=== PATIENT | male | born 1955 | race Caucasian/White ===

== ENCOUNTER → 2020-10-28 | Outpatient (CLI) | payer MEDICARE, OTHER ==
[2020-10-28 08:37] LABS: HEMOGLOBIN 15.8 gm/dl (14.0-17.5); RED BLOOD COUNT 5.34 M/UL (4.20-5.50); WHITE BLOOD COUNT 6.2 K/UL (4.5-11.0)
[2020-10-28 09:00] LABS: BUN/CREATININE RATIO 21 (0-10)
== END ==
LOC: LAB 07:21
PROVIDERS: Internal Medicine Hematology & Oncology
DX: C34.12 Malignant neoplasm of upper lobe, left bronchus or lung (principal)
CPT/HCPCS: 36415; 80053; 85025

== ENCOUNTER → 2020-10-31 | Outpatient (CLI) | payer MEDICARE, OTHER | LOC: CT 09:00 | DX: C34.12 Malignant neoplasm of upper lobe, left bronchus or lung (principal) | CPT/HCPCS: 71260; Q9967 ==

== ENCOUNTER 2021-07-14 09:18 | Emergency (ER) | payer OTHER ==
[2021-07-14 10:09] LABS: HEMOGLOBIN 14.9 gm/dl (14.0-17.5); RED BLOOD COUNT 5.18 M/UL (4.20-5.50); WHITE BLOOD COUNT 6.3 K/UL (4.5-11.0)
[2021-07-14 10:38] LABS: BUN/CREATININE RATIO 14 (0-10)
== END 2021-07-14 13:57 | disposition home or self-care (01) ==
LOC: ER1 09:18
PROVIDERS: Nurse Practitioner
DX: R07.89 Other chest pain (principal); I10 Essential (primary) hypertension; Z85.118 Personal history of other malignant neoplasm of bronchus and lung; J44.9 Chronic obstructive pulmonary disease, unspecified
CPT/HCPCS: 71045; 80053; 82550; 82553; 83874; 84484; 85025; 93005; 96374; 96375; 99285; J2270; J2405

== ENCOUNTER → 2021-11-28 | Outpatient (CLI) | payer MEDICARE, OTHER ==
[2021-11-28 08:29] LABS: HEMOGLOBIN 14.9 gm/dl (14.0-17.5); RED BLOOD COUNT 5.21 M/UL (4.20-5.50); WHITE BLOOD COUNT 6.8 K/UL (4.5-11.0)
[2021-11-28 09:00] LABS: BUN/CREATININE RATIO 15 (0-10)
== END ==
LOC: CT 08:03
PROVIDERS: Registered Nurse
DX: C34.12 Malignant neoplasm of upper lobe, left bronchus or lung (principal); K76.0 Fatty (change of) liver, not elsewhere classified
CPT/HCPCS: 36415; 71260; 80053; 85025; Q9967

== ENCOUNTER 2022-02-07 11:52 | Emergency (ER) | payer OTHER, MEDICARE ==
[2022-02-07 13:18] LABS: HEMOGLOBIN 13.9 gm/dl (14.0-17.5); RED BLOOD COUNT 4.84 M/UL (4.20-5.50); WHITE BLOOD COUNT 8.1 K/UL (4.5-11.0)
[2022-02-07 13:33] LABS: BUN/CREATININE RATIO 17 (0-10)
[2022-02-07] MEDS ORDERED: BACTRIM DS TAB1 EACH PO (17:08)
[2022-02-07] MEDS ORDERED: ELIQUIS5 MG PO (17:08)
[2022-02-07] MEDS ORDERED: CEPHALEXIN500 M1 PO (17:08)
== END 2022-02-07 18:15 | disposition home or self-care (01) ==
LOC: ER1 11:52
PROVIDERS: Physician Assistant
DX: L03.116 Cellulitis of left lower limb (principal); I48.91 Unspecified atrial fibrillation; I10 Essential (primary) hypertension; J44.9 Chronic obstructive pulmonary disease, unspecified; Z79.899 Other long term (current) drug therapy; Z85.118 Personal history of other malignant neoplasm of bronchus and lung
CPT/HCPCS: 73562; 73610; 80053; 82550; 82553; 84439; 84443; 84484; 85025; 85652; 86140; 93005; 93971; 99284